=== PATIENT | male | born 1945 | race Caucasian/White ===

== ENCOUNTER 2018-03-23 16:39 | Emergency (ER) | payer MEDICARE, OTHER ==
[~2018-03-23] VITALS: Ht 182.9 cm; Wt 82.5 kg
[~2018-03-23 16:39] MED LIST: ACET325 PO; AMLO5 PO; ASPI81CH PO; ATOR20 PO; ATOR80 PO; Bactrim 400-801 EACH PO; Bactrim Ds Tab1 EACH PO; Biscolax10 MG RC; CLOP75; DOCU100 PO; FINA5 PO; HYDHCL25 PO; HYDR1TAB94 PO; MELA3 PO; METO50 PO; MULVITMIND PO; Macrobid 100 M100 MG PO; NITR100CA PO; Nyamyc15 GM TP; ONDA4ODT MM; OSEL75CA PO; SACC250C; SULTRIDS PO; TRAM50 PO; TRAZ100 PO; Vibramycin100 MG PO
[2018-03-23 17:10] LABS: BASOPHILS ABSOLUTE AUTO 0.04 K/mm3 (0.00-0.23); BASOPHILS PERCENT AUTO 0 % (0-2); EOSINOPHILS ABSOLUTE AUTO 0.08 K/mm3 (0.00-0.68); EOSINOPHILS PERCENT AUTO 1 % (0-6); Hematocrit 52.8 % (37.0-53.0); Hemoglobin 17.8 g/dL (13.5-17.5); IMMATURE GRAN ABSOLUTE AUTO 0.02 K/mm3 (0.00-0.10); IMMATURE GRAN PERCENT AUTO 0 % (0-1); LYMPHOCYTES PERCENT AUTO 18 % (21-46); MONOCYTES ABSOLUTE AUTO 1.15 K/mm3 (0.16-1.47); MONOCYTES PERCENT AUTO 13 % (4-13); Mean Corpuscular HGB 33.8 pg (26.0-34.0); Mean Corpuscular HGB Conc 33.7 g/dL (31.5-36.5); Mean Corpuscular Volume 100 fL (80-100); Mean Platelet Volume 9.5 fL (9.1-12.4); NEUTROPHILS ABSOLUTE AUTO 6.24 K/mm3 (1.96-9.15); NEUTROPHILS PERCENT AUTO 68 % (41-73); Platelet Count 155 K/mm3 (150-400); RDW Coefficient Variation 13.3 % (11.7-14.2); RDW Standard Deviation 49.5 fL (35.1-46.3); Red Blood Cell Count 5.26 M/mm3 (4.30-5.90); White Blood Cell Count 9.23 K/mm3 (4.00-11.30)
[2018-03-23 17:39] LABS: Alanine Aminotransfer (ALT/SGP 36 U/L (12-78); Albumin, Blood 3.6 g/dL (3.4-5.0); Albumin/Globulin Ratio 1.2 (0.8-1.8); Alk Phos 86 U/L (50-136); Anion Gap 6 mmol/L (6-16); Aspartate Aminotrans (AST/SGOT 26 U/L (12-37); Bilirubin, Total 1.2 mg/dL (0.1-1.0); Blood Urea Nitrogen 15 mg/dL (8-24); Bun/Creatinine Ratio 14.2 (12.0-20.0); CO2, Blood 29 mmol/L (21-32); Calcium, Blood 9.5 mg/dL (8.5-10.1); Chloride, Blood 105 mmol/L (98-108); Creatinine, Blood 1.06 mg/dL (0.60-1.20); Glomerular Filtration Rate >60 (60-); Glucose, Blood 100 mg/dL (70-99); Potassium, Blood 3.9 mmol/L (3.5-5.5); Sodium, Blood 140 mmol/L (136-145); Total Protein, Blood 6.6 g/dL (6.4-8.2); Troponin I <0.015 ng/mL (0.000-0.040)
[2018-03-23 17:54] LABS: Source, Urine Clean Catch
[2018-03-23 18:21] LABS: Bilirubin, Urine Neg (Neg); Blood, Urine Neg (Neg); Glucose Qualitative, Urine Neg (Neg); Ketones, Urine Neg (Neg); Leukocyte Esterase, Urine Neg (Neg); Nitrite, Urine Neg (Neg); Protein, Urine Neg (Neg); Urobilinogen, Urine NORM (Normal); pH, Urine 6.5 (5.0-8.0)
[2018-03-23 18:23] LABS: Free Thyroxine 1.07 ng/dL (0.70-1.60); Magnesium, Blood 2.2 mg/dL (1.6-2.4)
[2018-03-23 18:25] LABS: Thyroid Stimulating Hormone 2.38 uIU/mL (0.360-4.800)
[2018-03-23 18:35] LABS: Appearance, Urine Clear (Clear); Color, Urine Yellow (P-Yellow)
== END 2018-03-23 19:25 | disposition home or self-care (01) ==
LOC: ER 16:39
PROVIDERS: Emergency Medicine
DX: R00.0 Tachycardia, unspecified (principal); F03.90 Unspecified dementia, unspecified severity, without behavioral disturbance, psychotic disturbance, mood disturbance, and anxiety; I25.10 Atherosclerotic heart disease of native coronary artery without angina pectoris; Z88.8 Allergy status to other drugs, medicaments and biological substances; Z88.5 Allergy status to narcotic agent; Z79.899 Other long term (current) drug therapy; Z87.891 Personal history of nicotine dependence
CPT/HCPCS: 36415; 71046; 80053; 81003; 83735; 83880; 84439; 84443; 84484; 85025; 93005; 93010; 99285-25

== ENCOUNTER 2020-04-19 03:54 | Inpatient (IN) | payer MEDICARE, BC ==
[~2020-04-19] VITALS: Ht 182.9 cm; Wt 87.2 kg
[2020-04-19 04:23] LABS: BASOPHILS ABSOLUTE AUTO 0.04 K/mm3 (0.00-0.23); BASOPHILS PERCENT AUTO 1 % (0-2); EOSINOPHILS ABSOLUTE AUTO 0.14 K/mm3 (0.00-0.68); EOSINOPHILS PERCENT AUTO 2 % (0-6); Hematocrit 47.4 % (37.0-53.0); Hemoglobin 15.6 g/dL (13.5-17.5); IMMATURE GRAN ABSOLUTE AUTO 0.01 K/mm3 (0.00-0.10); IMMATURE GRAN PERCENT AUTO 0 % (0-1); LYMPHOCYTES ABSOLUTE AUTO 2.53 K/mm3 (0.84-5.20); LYMPHOCYTES PERCENT AUTO 43 % (21-46); MONOCYTES PERCENT AUTO 12 % (4-13); Mean Corpuscular HGB 32.4 pg (26.0-34.0); Mean Corpuscular HGB Conc 32.9 g/dL (31.5-36.5); Mean Corpuscular Volume 99 fL (80-100); NEUTROPHILS ABSOLUTE AUTO 2.45 K/mm3 (1.96-9.15); NEUTROPHILS PERCENT AUTO 42 % (41-73); Platelet Count 132 K/mm3 (150-400); RDW Coefficient Variation 12.8 % (11.7-14.2); RDW Standard Deviation 47.1 fL (35.1-46.3); Red Blood Cell Count 4.81 M/mm3 (4.30-5.90); White Blood Cell Count 5.87 K/mm3 (4.00-11.30)
[2020-04-19 04:36] LABS: Source, Urine Clean Catch
[2020-04-19 04:37] LABS: International Normalized Ratio 1.09; Prothrombin Time Results 11.6 Sec (9.7-11.5)
[2020-04-19 04:39] LABS: Appearance, Urine Clear (Clear); Bilirubin, Urine Neg (Neg); Blood, Urine Neg (Neg); Color, Urine Amber (P-Yellow); Glucose Qualitative, Urine Neg (Neg); Ketones, Urine Neg (Neg); Leukocyte Esterase, Urine Neg (Neg); Nitrite, Urine Neg (Neg); Protein, Urine Neg (Neg); Specific Gravity, Urine 1.015 (1.003-1.022); Urobilinogen, Urine NORM (Normal); pH, Urine 6.5 (5.0-8.0)
[2020-04-19] MEDS ORDERED: ASPI81CH PO (04:39)
[2020-04-19 04:46] LABS: Alanine Aminotransfer (ALT/SGP 39 U/L (12-78); Albumin, Blood 3.7 g/dL (3.4-5.0); Albumin/Globulin Ratio 1.7 (0.8-1.8); Alk Phos 91 U/L (50-136); Anion Gap 5 mmol/L (6-16); Aspartate Aminotrans (AST/SGOT 38 U/L (12-37); Bilirubin, Total 0.9 mg/dL (0.1-1.0); Blood Urea Nitrogen 18 mg/dL (8-24); Bun/Creatinine Ratio 22.4 (12.0-20.0); CO2, Blood 29 mmol/L (21-32); Calcium, Blood 9.3 mg/dL (8.5-10.1); Chloride, Blood 111 mmol/L (98-108); Creatinine, Blood 0.81 mg/dL (0.60-1.20); Globulin, Blood 2.2 g/dL (2.2-4.0); Glomerular Filtration Rate >60 (60-); Glucose, Blood 79 mg/dL (70-99); Potassium, Blood 3.8 mmol/L (3.5-5.5); Sodium, Blood 145 mmol/L (136-145); Total Protein, Blood 5.9 g/dL (6.4-8.2); Troponin I <0.015 ng/mL (0.000-0.040)
--- NOTE | 2020-04-19 06:22 | NUR ---
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 shunt. PT had BG of 66 in ER 1 amp D50 given with reolution of facial droop. Dysphagia continued per report. Reported & bedside supportive assisting PT to use urinal frequently voids sm amts hx if BPH. PT is DNR & has PT OT ST ordered. NPO for BF diet ordered for lunch. Await admission.
--- NOTE | 2020-04-19 08:05 | NUR ---
SHIFT SUMMARY GLADYS HAS NPO ORDER UNTIL BANK ADVISOR CAN EVAL, BUT MORNING MEDS INCLUDE PLAVIX AND ASPIRIN. CALLED DR URRUTIA TO CLARIFY, HE STATES TO HOLD ALL MORNING MEDS UNTIL BANK ADVISOR ASSESSES
--- NOTE | 2020-04-19 08:32 | NUR ---
TELE CALLED, HR IN UPPER 30S. CHECKED ON PT, PT ASYMPTOMATIC. CALLED DR URRUTIA, HE STATES HE WILL COME AND SEE PT, AND TO TAKE VS Q2H
--- NOTE | 2020-04-19 11:52 | NUR ---
NEW R SIDE FACIAL DROOP AT REST, CALLED DR URRUTIA TO ASK FOR POSSIBLE CT, HE SAYS HE WILL REVIEW, AWAITING ORDERS
--- NOTE | 2020-04-19 14:00 | NUR ---
PAL CARE REFERRAL RECEIVED AND CASE CONFERENCE DONE THIS AM PER DR URRUTIA, due to pt's hx of prev CVA, new CVA with dysphagia, bradycardia (declined PPM), vascular dementia, hydrocephaly with PROCUREMENT OFFICER shunt, bladder retention/obstruction and now increased dysphagia and agitation, especially when unable to void. Case conferenced with and pt's RN before my visit. ST making eval visit when I entered the room so and I stepped out to review goals of care and pt/ wishes. After reviewing multiple severe comorbidities and pt's previously stated wishes, requests comfort care and d/c home with hospice when pt ready. She would like to proceeed with PT/OT evals so she is more clear on pt's needs. She would like to d/c the barium swallow. She states pt has had dysphagia and choking episodes even prior to this CVA. and RN updated on my visit and 's requests. Meds reviewed with and orders obtained and entered for comfort care and hospice. Comfort care orders reviewed with RN and CM, who will be setting up Hospice with [facility] per 's request.
--- NOTE | 2020-04-19 17:50 | NUR ---
SHIFT SUMMARY GLADYS WAS ADMITTED AT SHIFT CHANGE THIS MORNING AROUND 0630. TELE ON, WAS NAYAN WITH 1 AND 2ND DEGREE BLOCKS WITH HR GOING LOW 27 WITH PAUSES OF 3 SECONDS. 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 NOW HAD R SIDE FACIAL DROOP, ALL OTHER NEURO EXAM SAME IN ER, VERY SLURRED SPEECH. NO SENSATION DEFICITS, SOME R HAND COORDINATION DIFFICULTIES. ISTRATE INFORMED, ORDERED ANOTHER HEAD CT, COULDN'T DO MRI DUE TO PT'S SHUNT. RETAINING URINE, VERY VERY STRONGLY DOESN'T WANT RODRIGUEZ OR STRAIGHT CATH. PASSING SM AMTS OF URINE. PALLIATIVE AND DOCTOR TALKED TO , PT NOW COMFORT CARE. PT SAW PT, AO1 WITH WALKER AND GAIT BELT, VERY UNSTEADY. PT TO HAVE HIS FIRST MEAL HERE WITH THIS EVENING ON PUREED PER 'S PREFERENCE. COMFORT CARE CART AT . [facility]
--- NOTE | 2020-04-19 21:39 | NUR ---
75 year old Male with cardiac issues severe bradycardia & known cardiac pauses continues to decline pacemaker of intervention, also continues with urgency frequency & known urinary retention. He voids small amounts at least every 1.2 hour. Continues to decline parada cath apparent hx of parada & tramatic removal by PT. He continues very high fall risk due to urinary issues & needs assist to void. PT's Spouse Alycia was here & had been assisting with his urinary frequency but she went home for rest. She was recently hospitalized herself here at [facility] & needs rest. PT is [employer] he says he doesn't recieve many [facility] services but they did provide bilat hearing aides & PT says he can assess more services if needed. Changed to comfort care today & PT wants to DC home tomorrow. Due to Dementia PT needs alot of care & redirection. Involve SW in Dc plan to access services & support. PT sets of bed alarm multiple times needing to urinate. Able to ambulate with FWW, just uses cane at home. Continues to deny pain or acute anxiety on comfort measures. Declines to follow swallow precautions failed swallow eval. Support offered
--- NOTE | 2020-04-20 05:51 | NUR ---
PT requests IV out on comfort measures IV saline lock DC.
--- NOTE | 2020-04-20 05:52 | NUR ---
PT with only a few sips oral intake several small bits yogurt with assist. Obvious swallow deficit, PT coughs after oral intake. PT hoping to go home today on Hospice. Can use call escobedo approprop but continues high risk for falls. Able to communicate, has bilat hearing aides in place. Up with 1 assist FWW to bathroom needs assist with using urinal.
--- NOTE | 2020-04-20 07:00 | NUR ---
PT AWAKE DURING BEDSIDE SHIFT REPORT. NO C/O PAIN, NAUSEA & VOMITING AT THIS TIME.
--- NOTE | 2020-04-20 09:30 | NUR ---
[address] [facility] COMFORT CARE VISIT MADE. I met with to discuss current status and plans for d/c home with [facility] per her request. I had left messages for CM yesterday but had not received any contact from them yet. After my visit I spoke with CM covering pt today and all referral/contact info provided. Pt will need a hospital bed, bsc and overbed table set up prior to d/c. aware we may be able to get that done today and d/c would occur today or tomorrow. Pt slept thru my visit. He appears comfortable. states he is not taking anything by mouth. We discussed how that will affect him at home. is aware of pt's bradycardia, pauses and heart block s/s. Pt has been able to cont to void. Discussed possibility of indwelling catheter at home if he is not able to void and to expect decreasing urine output and decreased periods of alertness with no nutrition/fluid intake. Time spent listening and supporting , who spent time caring for her sister recently, who also went through the dying process at home. very appreciative. She will await contact from CM before leaving for the afternoon around 1230.
--- NOTE | 2020-04-20 10:43 | NUR ---
PT AT BEDSIDE. PT COMFORTABLY SLEEPING WITHOUT PAIN COMPLAINS
--- NOTE | 2020-04-20 10:59 | NUR ---
ASSISTED PT WITH BED BATH. LINENS CHANGED. WAS WAS ASSISTED TO BATHROOM WITH .
--- NOTE | 2020-04-20 11:51 | NUR ---
PT ASLEEP COMFORTABLE AND AT BEDSIDE.
--- NOTE | 2020-04-20 15:16 | NUR ---
PT ASLEEP COMFORTABLY IN THE ROOM, NO C/O PAIN, N&V.
--- NOTE | 2020-04-20 15:43 | NUR ---
PT AWAKE AT THIS TIME; ASSISTED THE PT TO THE BATHROOM. NO C/O OF PAIN AT THIS TIME.
--- NOTE | 2020-04-20 17:20 | NUR ---
SHIFT SUMMARY PT AOX3. WILL SOMETIME USES THE CALL LIGHT. PT ON COMFORT CARE NOW- PALLIATIVE CARE CAME IN AND DISCUSSED THE PLAN WITH THE AND PT. PT WILL BE DISCHARGE TOMORROW IN [facility]. THERE IS A DISCHARGE ORDER FOR TODAY; HOWEVER PT STILL WAITING FOR THE EQUIPMENT AND WORKING WITH [facility] BEFORE DISCHARGE' BUT POSSIBLY DISCHARGE TOMORROW. AM MEDS WAS NOT GIVEN DUE TO HIGH RISK OF ASPIRATION. NO C/O PAIN, NAUSEA OR VOMITING. PT IS RESTING COMFORTABLY- AT BEDSIDE ALMOST ALL DAY TODAY. CALL LIGHTS WITHIN REACH, BED ALARM ON AND BED IS IN THE LOWEST POSITION.
--- NOTE | 2020-04-20 17:39 | NUR ---
PT COMFORTABLY SLEEPING AT THIS TIME
--- NOTE | 2020-04-20 18:20 | NUR ---
PT DENIES PAIN, NAUSEA OR VOMITING.
--- NOTE | 2020-04-20 18:42 | NUR ---
PT AMBULATED TO THE BATHROOM WITH 1P ASSIST USING FWW. NO C/O PAIN, N&V.
--- NOTE | 2020-04-21 00:08 | NUR ---
SHIFT SUMMARY ASSUMED CARE OF PT FROM DAKOTAH TAYLOR, BEDSIDE REPORT COMPLETED, PT ASSISTED W/URINAL; SINCE REPORT PT CONTINUED TO ATTEMPT TO GET OUT OF BED ABOUT EVERY 10 MINS, ASSISTED W/URINAL, ATTEMPTED TO HELP PT CALL SPOUSE (NO ANSWER), PT WOULD DEMAND THAT HIS COME TO HOSPITAL, REFUSED TO TAKE ANY PO MEDS, STATING "THE DOCTOR SAID NO", XFER'D TO ROOM 348 @ 0000 IN BED, BED ALARM IN PLACE, CALL LIGHT IN REACH, REPORT GIVEN TO DAKOTAH YOUNGER.
--- NOTE | 2020-04-21 03:10 | NUR ---
COMFORT CARE ASSESSMENT PT REFUSES ANY MEDICATION TO HELP HIM SLEP AND REFUSES TO HAVE CATHERTER PLACED. PT GETS UP TO URINATE ABOUT EVERY 5-10MIN, PT ONLY URINATES ABOUT 10-3CC AT A TIME. PT KEEPS ASKING WHAT TIME IT IS AND WHEN HE CAN LEAVE.
--- NOTE | 2020-04-21 04:09 | NUR ---
SHIFT SUMMARY ASSUMED CARE OF PT AT 0000. PT IS A/O BUT IS VERY FORGETFUL. PT INSISTS THAT HE NEEDS TO GO HOME AND THAT HIS NEEDS TO COME GET HIM. AFTER PT IS REORIENTED TO THE TIME, PT WILL ATTEMPT TO GET OUT OF BED 5 MIN LATER AND AK IF IT IS 0800 IN THE MORNING AND IF THE DOCTOR WAS HERE TO DISCHARGE HIM. PT WILL ALSO ATTEMPT TO URINATE EVERY 5-10 MIN AND ONLY URINATE ABOUT 10-50CC AT A TIME. PT REFUSES ANY TYPE OF MEDICATION BEUCASE HE STATES HE DOESNT NEED THEM. PT ALSO REFUSED CATHETER BEUCASE HE HAD ONE BEFORE AND IT WAS NOT COMFORTABLE. PT EDUCATED ABOUT HOW IT MIGHT MAKE HIM MORE COMFORTABLE BUT PT STILL REFUSES. CALL LIGHT IN REACH, BED IN LOWEST POSITION, WILL CONTINUE TO MONITOR.
--- NOTE | 2020-04-21 09:06 | NUR ---
PATIENT IS VERY AGITATED THIS MORNING REFUSING MEDICATIONS AT THIS TIME. HE STATES THAT IF HE TAKES ANYTHING BY MOUTH HE WOULD CHOKE AND . HE NOTES THAT HE IS JUST WAITING FOR HIS TO COME GET HIM.
[2020-04-21] MEDS ORDERED: ACET325 PR (10:59)
[2020-04-21] MEDS ORDERED: ATROPINE SULFATE5 ML SL (10:59)
[2020-04-21] MEDS ORDERED: CLOP75 PO (10:59)
[2020-04-21] MEDS ORDERED: HALO.5 PO (11:00)
[2020-04-21] MEDS ORDERED: Ativan1 MG PO (11:00)
[2020-04-21] MEDS ORDERED: ONDA4ODT MM (11:01)
[2020-04-21] MEDS ORDERED: TRANSDERM-SCOP1 EAC2 TOP (11:02)
[2020-04-21] MEDS ORDERED: OXYC1L SL (11:02)
--- NOTE | 2020-04-21 11:55 | NUR ---
patient has significant facial droop. he is very agitated and wants to go home. he does not want to be stuck in the hospital any longer. nicole rn has to be one on one with the patient. he does not want to be stuck in the hospital at this time. he is awaiting his to arrive to let him go home.
--- NOTE | 2020-04-21 14:04 | NUR ---
DISCHARGE SUMMARY PATIENT DENIES ANY CONCERNS AT THIS TIME. THE PATIENT IS WITH HIS SPOUSE IN THE ROOM. AWAITING WHEELCHAIR TRANSPORT FOR THE PATIENT. HE IS SUPPOSED TO BE PICKED UP AT 1400 TODAY. THE PATIENT'S FAMILY IS AWAITING THE PATIENT'S DISCHARGE AND WILL MEET THE PATIENT AT HOME. ALL MEDICATIONS SENT TO PHARMACY OF CHOICE PER PATIENT'S FAMILY MEMBER. SHE HAS THE HARD COPY OF THE SCRIPTS IN THE DICAHRGE PAPERS WHICH HAVE BEEN SIGNED BY THE PATIENT'S SPOUSE DUE TO THE PATIENT'S INABILITY TO SIGN.
--- NOTE | 2020-04-21 14:16 | NUR ---
DISCHARGE SUMMARY PATIENT IS LETHARGIC HE HAD NOT SLEPT. AT BEDSIDE AND PATIENT MOVED TO WHEELCHAIR NO ACUTE CONCERNS AT THIS TIME. HE IS SENT WITH HIS PAPERWORK.
== END 2020-04-21 14:14 | disposition hospice, home (50) | DRG 65 ==
LOC: ER 03:54 → MEDS 04:38 → ENPENDDIS 04-20 16:04 → MEDS 04-20 23:59
PROVIDERS: Emergency Medicine; ADMIT Internal Medicine
DX: I63.9 Cerebral infarction, unspecified (principal); G91.2 (Idiopathic) normal pressure hydrocephalus; T17.800A Unspecified foreign body in other parts of respiratory tract causing asphyxiation, initial encounter; E16.2 Hypoglycemia, unspecified; R00.1 Bradycardia, unspecified; R13.10 Dysphagia, unspecified; F01.50 Vascular dementia, unspecified severity, without behavioral disturbance, psychotic disturbance, mood disturbance, and anxiety; I25.10 Atherosclerotic heart disease of native coronary artery without angina pectoris; Z51.5 Encounter for palliative care; E66.9 Obesity, unspecified; R47.81 Slurred speech; G83.14 Monoplegia of lower limb affecting left nondominant side; Z66 Do not resuscitate; Z68.25 Body mass index [BMI] 25.0-25.9, adult; Z95.1 Presence of aortocoronary bypass graft; Z98.2 Presence of cerebrospinal fluid drainage device; Z87.891 Personal history of nicotine dependence; Z87.440 Personal history of urinary (tract) infections; Z86.73 Personal history of transient ischemic attack (TIA), and cerebral infarction without residual deficits; Z88.8 Allergy status to other drugs, medicaments and biological substances; Z88.5 Allergy status to narcotic agent; Z88.1 Allergy status to other antibiotic agents; Z79.82 Long term (current) use of aspirin; Z79.899 Other long term (current) drug therapy
CPT/HCPCS: 36415; 70450; 80053; 81003; 82947; 83690; 84443; 84484; 85025; 85610; 85730; 92610; 93005; 93010; 93306; 93880; 96374; 97166; 97530; 99285-25; J7030; J7042